=== PATIENT | female | born 1975 | race Caucasian/White ===

== ENCOUNTER 2018-10-18 03:31 | Inpatient (IN) | payer OTHER ==
[~2018-10-18] VITALS: Ht 165.1 cm; Wt 56.7 kg
[2018-10-18 03:50] LABS: Calcium, Ionized (POC) 1.16 mmol/L (1.10-1.46); Chloride (POC) 104 mmol/L (98-108); Creatinine (POC) 0.6 mg/dL (0.6-1.0); Glucose (ISTAT POC) 123 mg/dL (70-99); Hemoglobin (POC) 10.5 g/dL (12.0-16.0); Potassium (POC) 3.2 mmol/L (3.5-5.5); Sodium (POC) 137 mmol/L (135-148); Total CO2 (POC) 20 mmol/L (21-32)
[2018-10-18 04:50] LABS: BASOPHILS ABSOLUTE AUTO 0.06 K/mm3 (0.00-0.23); BASOPHILS PERCENT AUTO 0 % (0-2); EOSINOPHILS ABSOLUTE AUTO 0.12 K/mm3 (0.00-0.68); EOSINOPHILS PERCENT AUTO 1 % (0-6); Hematocrit 35.9 % (33.0-51.0); IMMATURE GRAN ABSOLUTE AUTO 0.07 K/mm3 (0.00-0.10); IMMATURE GRAN PERCENT AUTO 0 % (0-1); LYMPHOCYTES ABSOLUTE AUTO 1.29 K/mm3 (0.84-5.20); LYMPHOCYTES PERCENT AUTO 8 % (21-46); MONOCYTES ABSOLUTE AUTO 1.33 K/mm3 (0.16-1.47); MONOCYTES PERCENT AUTO 8 % (4-13); Mean Corpuscular HGB 32.2 pg (26.0-34.0); Mean Corpuscular HGB Conc 33.4 g/dL (31.5-36.5); Mean Corpuscular Volume 96 fL (80-100); Mean Platelet Volume 10.4 fL (9.1-12.4); NEUTROPHILS ABSOLUTE AUTO 13.11 K/mm3 (1.96-9.15); NEUTROPHILS PERCENT AUTO 82 % (41-73); Platelet Count 168 K/mm3 (150-400); RDW Coefficient Variation 13.9 % (11.7-14.2); RDW Standard Deviation 49.1 fL (35.1-46.3); Red Blood Cell Count 3.73 M/mm3 (3.80-5.20); White Blood Cell Count 15.98 K/mm3 (4.00-11.30)
[2018-10-18 05:01] LABS: Alanine Aminotransfer (ALT/SGP 133 U/L (12-78); Albumin, Blood 2.5 g/dL (3.4-5.0); Albumin/Globulin Ratio 0.6 (0.8-1.8); Alk Phos 97 U/L (50-136); Anion Gap 9 mmol/L (6-16); Aspartate Aminotrans (AST/SGOT 125 U/L (12-37); Bilirubin, Total 0.4 mg/dL (0.1-1.0); Blood Urea Nitrogen 14 mg/dL (8-24); CO2, Blood 22 mmol/L (21-32); Calcium, Blood 8.3 mg/dL (8.5-10.1); Chloride, Blood 108 mmol/L (98-108); Creatinine, Blood 0.61 mg/dL (0.40-1.00); Globulin, Blood 4.2 g/dL (2.2-4.0); Glomerular Filtration Rate >60 (60-); Glucose, Blood 125 mg/dL (70-99); Potassium, Blood 3.5 mmol/L (3.5-5.5); Sodium, Blood 139 mmol/L (136-145); Total Protein, Blood 6.7 g/dL (6.4-8.2)
[2018-10-18 05:26] LABS: Source, Urine Catheter
[2018-10-18 05:41] LABS: Bilirubin, Urine Neg (Neg); Blood, Urine 5+ (Neg); Glucose Qualitative, Urine Neg (Neg); Ketones, Urine 1+ (Neg); Leukocyte Esterase, Urine Neg (Neg); Nitrite, Urine Neg (Neg); Protein, Urine 2+ (Neg); Specific Gravity, Urine 1.015 (1.003-1.022); Urobilinogen, Urine 2+ (Normal)
[2018-10-18 05:55] LABS: Appearance, Urine Hazy (Clear); Color, Urine Yellow (P-Yellow); U Amphetamine Screen DETECTED; U Barbituate Screen Not Detected; U Benzodiazapine Screen Not Detected; U Buprenorphine Screen Not Detected; U Cannabinoids Screen Not Detected; U Cocaine Screen Not Detected; U Methadone Screen Not Detected; U Methamphetamine Screen DETECTED; U Opiates Screen Not Detected; U Oxycodone Screen Not Detected; U Phencyclidine Screen Not Detected; U Propoxyphene Screen Not Detected
[2018-10-18 05:57] LABS: Bacteria Few /hpf; Red Blood Cells, Urine 25-50 /hpf (0-2); Squamous Epithelial Cells Few /hpf (Few)
[2018-10-18 05:58] LABS: Amorphous Light ({null, 0-Heavy})
[2018-10-18 06:16] LABS: BASOPHILS ABSOLUTE AUTO 0.01 K/mm3 (0.00-0.23); BASOPHILS PERCENT AUTO 0 % (0-2); EOSINOPHILS ABSOLUTE AUTO 0.14 K/mm3 (0.00-0.68); EOSINOPHILS PERCENT AUTO 1 % (0-6); Hematocrit 20.9 % (33.0-51.0); Hemoglobin 6.9 g/dL (11.5-16.0); IMMATURE GRAN ABSOLUTE AUTO 0.09 K/mm3 (0.00-0.10); IMMATURE GRAN PERCENT AUTO 1 % (0-1); LYMPHOCYTES PERCENT AUTO 8 % (21-46); MONOCYTES ABSOLUTE AUTO 1.15 K/mm3 (0.16-1.47); MONOCYTES PERCENT AUTO 10 % (4-13); Mean Corpuscular HGB 32.1 pg (26.0-34.0); Mean Corpuscular Volume 97 fL (80-100); Mean Platelet Volume 10.1 fL (9.1-12.4); NEUTROPHILS ABSOLUTE AUTO 9.35 K/mm3 (1.96-9.15); NEUTROPHILS PERCENT AUTO 80 % (41-73); Platelet Count 118 K/mm3 (150-400); RDW Standard Deviation 49.7 fL (35.1-46.3); Red Blood Cell Count 2.15 M/mm3 (3.80-5.20); White Blood Cell Count 11.64 K/mm3 (4.00-11.30)
--- NOTE | 2018-10-18 07:57 | NUR ---
REPORT FROM ADAM LEMONS IN ED. PT STABLE, CURRENTLY GETTING 1 UNIT PRBC FOR A DROP IN HGB AND BLEEDING. ED NURSE WILL BE BRINGING PATIENT DOWN TO [facility].
--- NOTE | 2018-10-18 09:05 | NUR ---
CALL TO DOCTOR MARIANN, PTS BLOOD PRESSURES ARE 90'S/40'S-50'S. NO ORDERS FOR FLUIDS OR MEDICATIONS. PT IS STILL GETTING 1 UNIT PRBC. DIFFICULT TO AROUSE. ORDER GIVEN FOR LR AT 150ML/HOUR, CONTINUE STRICT I&O, AND REPEAT CBC AFTER UNIT OF BLOOD ADMINISTERED.
[2018-10-18 09:41] LABS: BASOPHILS ABSOLUTE AUTO 0.01 K/mm3 (0.00-0.23); BASOPHILS PERCENT AUTO 0 % (0-2); Hematocrit 22.8 % (33.0-51.0); Hemoglobin 7.7 g/dL (11.5-16.0); LYMPHOCYTES ABSOLUTE AUTO 1.02 K/mm3 (0.84-5.20); LYMPHOCYTES PERCENT AUTO 9 % (21-46); MONOCYTES ABSOLUTE AUTO 0.96 K/mm3 (0.16-1.47); MONOCYTES PERCENT AUTO 8 % (4-13); Mean Corpuscular HGB 31.4 pg (26.0-34.0); Mean Corpuscular HGB Conc 33.8 g/dL (31.5-36.5); Mean Platelet Volume 9.6 fL (9.1-12.4); Platelet Count 123 K/mm3 (150-400); RDW Coefficient Variation 15.2 % (11.7-14.2); RDW Standard Deviation 51.9 fL (35.1-46.3); Red Blood Cell Count 2.45 M/mm3 (3.80-5.20); White Blood Cell Count 11.79 K/mm3 (4.00-11.30)
[2018-10-18 09:44] LABS: EOSINOPHILS ABSOLUTE AUTO 0.08 K/mm3 (0.00-0.68); EOSINOPHILS PERCENT AUTO 1 % (0-6); IMMATURE GRAN PERCENT AUTO 1 % (0-1); Mean Corpuscular Volume 93 fL (80-100); NEUTROPHILS ABSOLUTE AUTO 9.62 K/mm3 (1.96-9.15); NEUTROPHILS PERCENT AUTO 82 % (41-73)
--- NOTE | 2018-10-18 13:13 | NUR ---
PT IS MORE AWAKE AND ALERT, DENIES PAIN. SCANT BLEEDING. BLOOD PRESSURES STILL 90'S/40'S-50'S. PT ASKING TO EAT AND ASKING TO BE DISCHARGED TO GO SEE HER NB THAT WAS TRANSPORTED TO [facility]. I SPOKE WITH DR. WAITE ON THE UNIT WHO ADVISED AGAINST MEDICAL ADVICE. DR. WAITE WOULD RECOMMEND PATIENT STAY AND REASSESS THIS EVEINING. I EXPLAINED THIS TO THE PATIENT.
--- NOTE | 2018-10-18 14:31 | NUR ---
DR. WAITE SPOKE WITH PT REGARDING THE IMPORTANCE OF STAYING DOWN IN OUR UNIT IF PT WANTED TO GET UP TO WALK AROUND AND NO TO GO OUTSIDE DUE TO HAVING AN IV IN AND ALSO BEING A HIGHER RISK PATIENT. AMANDA RN WRAPPED BOTH IV SITES WITH COBAN AND MARKED THEM TO KNOW IF THE SITE HAS BEEN TAMPERED WITH. PT ENCOURAGED TO ASK A NURSE FOR HELP WITH AMBULATION AND NOT TO GET UP ON HER OWN. VONNIE MEDINA AT [facility] WHILE WE BOTH GOT PT UP TO SHOWER. PT TOLERATED WELL AND DENIED DIZZINESS OR LIGHTHEADEDNESS WHILE STANDING. PT REPORTED SHE WILL ASK FOR HELP WITH GETTING UP.
[2018-10-18 14:35] LABS: BASOPHILS ABSOLUTE AUTO 0.03 K/mm3 (0.00-0.23); BASOPHILS PERCENT AUTO 0 % (0-2); EOSINOPHILS ABSOLUTE AUTO 0.14 K/mm3 (0.00-0.68); EOSINOPHILS PERCENT AUTO 1 % (0-6); Hematocrit 23.4 % (33.0-51.0); Hemoglobin 7.8 g/dL (11.5-16.0); IMMATURE GRAN ABSOLUTE AUTO 0.09 K/mm3 (0.00-0.10); IMMATURE GRAN PERCENT AUTO 1 % (0-1); LYMPHOCYTES ABSOLUTE AUTO 1.18 K/mm3 (0.84-5.20); LYMPHOCYTES PERCENT AUTO 9 % (21-46); MONOCYTES ABSOLUTE AUTO 0.79 K/mm3 (0.16-1.47); MONOCYTES PERCENT AUTO 6 % (4-13); Mean Corpuscular HGB 31.7 pg (26.0-34.0); Mean Corpuscular HGB Conc 33.3 g/dL (31.5-36.5); Mean Corpuscular Volume 95 fL (80-100); Mean Platelet Volume 10.2 fL (9.1-12.4); NEUTROPHILS ABSOLUTE AUTO 10.66 K/mm3 (1.96-9.15); NEUTROPHILS PERCENT AUTO 83 % (41-73); Platelet Count 157 K/mm3 (150-400); RDW Coefficient Variation 16.1 % (11.7-14.2); RDW Standard Deviation 56.8 fL (35.1-46.3); Red Blood Cell Count 2.46 M/mm3 (3.80-5.20); White Blood Cell Count 12.89 K/mm3 (4.00-11.30)
--- NOTE | 2018-10-18 18:18 | NUR ---
PT GAVE TO NB AT HOME. PT ARRIVED TO ER AND NB WAS TAKEN DOWN TO [facility] INTO NURSERY BY [facility] STAFF. PT STAYED UP IN ER WITH AT BEDSIDE. PT DOWN TO [facility] AROUND [id number].
--- NOTE | 2018-10-18 18:24 | NUR ---
PT DELIVERED NB AT HOME. TRANSPORTED TO ER BY CAR. NB TAKEN DOWN TO [facility] INTO NURSERY BY [facility] STAFF. PT REMAINED UP IN ER, AT BEDSIDE ASSUMING CARE OF PT.
--- NOTE | 2018-10-18 18:24 | NUR ---
PT ASKING TO LEAVE SO SHE CAN GO TO [facility] TO SEE HER DAUGHTER. DR. WAITE WAS CONTACTED AND STATED THAT PT MAY LEAVE THIS EVENING AFTER HER FRIST PP VOID. DR. WAITE ALSO WANTED TO OFFER MMR VACCINE. MMR VACCIEN WAS GIVEN/ PT ACCEPTED. BOTH IV'S WERE DC'D BEFORE DISCHARGE. PT GIVEN DETAILED DISCHARGE INSTRUCTIONS ON WHAT TO WATCH FOR AND WHEN TO CONTACT HER PROVIDER IF NEEDED. PT HAD NO QUESTIONS OR CONCERNS AND REPORTED THAT HER DAUGHTER'S FRIEND WAS DRIVING HER TO [facility] THIS EVENING SO SHE COULD BE WITH HER DAUGHTER. PT GIVEN DR. JOHNSON CARD/ PHONE NUMBER TO THE OFFICE. FOLLOW UP APPOINTMENT WAS MADE FOR 10/22/18 @1000.
[2018-10-21 00:05] LABS: HBSAG SCREEN Negative (Negative); HIV SCREEN 4TH GENERATION WRFX Non Reactive (Non Reactive)
== END 2018-10-18 18:15 | disposition home or self-care (01) | DRG 806 ==
LOC: ER 03:31 → BC 06:32
PROVIDERS: Emergency Medicine; ADMIT Obstetrics & Gynecology
PROC: 10E0XZZ Delivery of Products of Conception, External Approach (ICD-10-PCS; principal; 2018-10-18)
PROC: 30233N1 Transfusion of Nonautologous Red Blood Cells into Peripheral Vein, Percutaneous Approach (ICD-10-PCS; 2018-10-18)
DX: O60.12X0 Preterm labor second trimester with preterm delivery second trimester, not applicable or unspecified (principal); O72.0 Third-stage hemorrhage; Z37.0 Single live birth; Z87.891 Personal history of nicotine dependence; Z3A.24 24 weeks gestation of pregnancy
CPT/HCPCS: 36415; 36430; 51702; 59414; 76856; 80047; 80053; 81001; 85014; 85025; 86592; 86762; 86850; 86900; 86901; 86923; 87340; 87389; 88305; 90707; 96361-59; 96365-59; 96375-59; 99285-25; J0690; J2060; J2590; J3010; J7030; J7120; P9016